=== PATIENT | female | born 1945 | race Caucasian/White ===

== ENCOUNTER 2019-12-05 17:24 | Emergency (ER) | payer MEDICARE, OTHER, SELFPAY ==
[2019-12-05 17:30] VITALS: BP 154/75; PULSE 88; RESP 16; TEMP 35.7; O2SAT 94
--- NOTE | 2019-12-05 17:36 | PC.NURSE ---
nasal clamp placed
[2019-12-05] MEDS: OXYMETAZOLINE HCL 0.05% NAS 15 ML BTL (*BKC) 1 SPRAY NASAL (18:14)
--- NOTE | 2019-12-05 18:20 | ED.GENADULT ---
HPI - General Adult General Chief complaint: Unspecified Stated complaint: nosebleed Time Seen by Provider: 12/05/19 17:31 Source: patient Mode of arrival: ambulatory Limitations: no limitations History of Present Illness HPI narrative: This is a 74 year old female that presents to the ER for nosebleed for the last 30 minutes. Reports she was picking her nose and it started to bleed on the left side. Reports a similar incident a couple of days ago. Reports today she could not control the bleeding so she came to the ER. Denies fever. Related Data Home Medications Medication Instructions Recorded Confirmed aspirin 81 mg tablet,delayed 81 mg PO DAILY 06/11/19 08/30/19 release methocarbamol 750 mg tablet 750 mg PO QID PRN 06/11/19 08/30/19 niacin 500 mg tablet 500 mg PO DAILY 06/11/19 08/30/19 omega-3 fatty acids 1,000 mg 3,000 mg PO DAILY cap 06/11/19 08/30/19 capsule bumetanide 1 mg PO DAILY 08/30/19 glimepiride 1 mg PO HS 08/30/19 Allergies Allergy/AdvReac Type Severity Reaction Status Date / Time No Known Allergies Allergy Mild Verified 12/05/19 17:35 Review of Systems Review of Systems: Narrative: CONSTITUTIONAL: Denies fever ENT: Reports epistaxis All systems reviewed & are unremarkable except as noted in HPI and below PMFSH Past Medical History Medical History (Updated 12/05/19 @ 20:09 by Dinora Carroll PA-C) Anemia Diabetes mellitus HTN (hypertension) Family History Family History (Updated 03/20/14 @ 07:13 by DOCTOR UNKNOWN) Father Family history of rheumatoid arthritis Social History Social History Smoking status: Never smoker Alcohol intake: current Exam Narrative: Exam Narrative: GENERAL: Well-appearing, well-nourished, and in no acute distress. HEAD: Normocephalic, atraumatic. EYES: EOMI. ENT: Left sided epistaxis. Mucous membranes moist. Blood seen in the posterior pharynx CHEST: Airway patent EXTREMITIES: Normal range of motion. No edema. SKIN: Warm, dry, no rash. NEURO: No focal deficits. Alert and oriented x3. PSYCH: Normal mood and affect Course Vital Signs Vital signs: Vital Signs Temperature 96.2 F L 12/05/19 17:30 Pulse Rate 88 12/05/19 17:30 Respiratory Rate 16 12/05/19 17:30 Blood Pressure 154/75 H 12/05/19 17:30 Pulse Oximetry 94 12/05/19 17:30 Temperature 96.2 F L 12/05/19 17:30 Pulse Rate 61 12/05/19 18:54 Respiratory Rate 15 12/05/19 18:54 Blood Pressure 111/52 L 12/05/19 18:54 Pulse Oximetry 96 12/05/19 18:54 Procedures Epistaxis Control left: Epistaxis Control Date: 12/05/19 Epistaxis Control Time: 20:01 Nose Prepped With: oxymetazoline Direct Inspection: yes Clots Removed by: blowing nose Cautery Used: none Device Inserted: nasal tampon Patient Tolerated Procedure: well Epistaxis Control Narrative: Epistaxis controlled in the left nare with a medium size Rhino Rocket Medical Decision Making MDM Narrative Medical decision making narrative: Patient presents the emergency department for epistaxis that started 30 minutes prior to arrival. Patient's vitals are stable. Her hemoglobin is 10.2. Bleeding was controlled with a medium size Rhino Rocket on the left. Spoke with Dr. Del Angel about patient and work-up will follow-up in clinic. Patient will be started on an antibiotic. Offered pain medication, declined. She will take OTC medication as needed. Patient and family were given warnings to return to the ER Vital Signs Vital Signs: Vital Signs Temperature 96.2 F L 12/05/19 17:30 Pulse Rate 88 12/05/19 17:30 Respiratory Rate 16 12/05/19 17:30 Blood Pressure 154/75 H 12/05/19 17:30 Pulse Oximetry 94 12/05/19 17:30 Temperature 96.2 F L 12/05/19 17:30 Pulse Rate 61 12/05/19 18:54 Respiratory Rate 15 12/05/19 18:54 Blood Pressure 111/52 L 12/05/19 18:54 Pulse Oximetry 96 12/05/19 18:54 Lab Data Lab results rev
[2019-12-05 18:54] VITALS: BP 111/52; PULSE 61; RESP 15; O2SAT 96
[2019-12-05 19:16] LABS: Hematocrit 33.3 % (37.0-47.0); Hemoglobin 10.7 g/dL (12.0-15.0); Red Blood Count 3.64 M/mm3 (4.2-5.4); White Blood Count 10.2 K/mm3 (4.5-10.0)
[2019-12-05 19:17] LABS: Basophils Absolute Auto 0.1 K/mm3 (0.0-0.1); Basophils Percent Auto 0.8 % (0.2-1.2); Eosinophils Absolute Auto 0.2 K/mm3 (0-0.3); Eosinophils Percent Auto 2.1 % (0-4.4); Immature Granulocyte Absolute 0.04 K/mm3 (0.00-0.031); Immature Granulocyte Percent A 0.4 % (0-0.5); Lymphocytes Absolute Auto 1.03 K/mm3 (0.9-3.2); Lymphocytes Percent Auto 10.1 % (18.3-44.2); Mean Corpuscular HGB Conc 32.1 g/dl (32-36); Mean Corpuscular Hemoglobin 29.4 pg (26-34); Mean Corpuscular Volume 91.5 fl (80-100); Monocytes Absolute Auto 0.9 K/mm3 (0.1-0.6); Monocytes Percent Auto 8.3 % (2.6-8.5); Neutrophils Percent Auto 78.3 % (45.5-73.1); Platelet Count Result 339 k/mm3 (150-375); Red Cell Distribution Width 12.9 % (11.5-14.5)
[2019-12-05 20:48] LABS: INR 0.9; Prothrombin Time 12.1 Seconds (11.1-14.7)
[2019-12-05 20:49] LABS: Partial Thromboplastin Time 28.8 SECONDS (22.3-36.8)
[2019-12-05 20:56] VITALS: BP 148/73; PULSE 66; RESP 18; TEMP 36.2; O2SAT 97
[2019-12-06 06:05] LABS: Glucose Point of Care 245 (65-105)
== END 2019-12-05 21:11 | disposition home or self-care (01) ==
PROVIDERS: Physician Assistant; Emergency Provider Emergency Medicine; PCP Internal Medicine
DX: R04.0 Epistaxis (principal); E11.9 Type 2 diabetes mellitus without complications; I10 Essential (primary) hypertension; D64.9 Anemia, unspecified; Z79.82 Long term (current) use of aspirin; Z79.84 Long term (current) use of oral hypoglycemic drugs
CPT/HCPCS: 30901; 36415; 82948; 85025; 85610; 85730; 99283; A9270

== ENCOUNTER 2020-01-29 10:06 | Emergency (ER) | payer MEDICARE, OTHER, SELFPAY ==
[2020-01-29 10:10] VITALS: BP 185/91; PULSE 74; RESP 14; TEMP 36.7; O2SAT 97
--- NOTE | 2020-01-29 10:38 | ECG_ITS ---
Measurements Intervals [place] Rate: 65 P: 33 WI: 150 QRS: 7 QRSD: 89 T: 24 QT: 409 QTc: 425 Interpretive Statements SINUS RHYTHM WITH MARKED SINUS ARRHYTHMIA BASELINE ARTIFACT- I, III, AVR, AVL, AVF, V1 NORMAL ECG Electronically Signed On 01-29-2020 11:51:03 CDT by Genaro Almazan D.O.
--- NOTE | 2020-01-29 10:39 | ED.RECABL ---
HPI - Recheck/Abnormal Lab/Rx General Chief Complaint: Recheck/Abnormal Lab/Rx Stated Complaint: htn Time Seen by Provider: 01/29/20 10:21 Source: patient Mode of arrival: ambulatory Limitations: no limitations History of Present Illness HPI narrative: This is a 74 year old female that presents to the ER for high blood pressure. Reports she felt lightheaded this morning so took her blood pressure and it was 200/100. Reports she took her new hypertension medication and since feels better. Currently does not have any symptoms. Denies fever, chest pain, shortness of breath or edema. Related Data Home Medications Medication Instructions Recorded Confirmed aspirin 81 mg tablet,delayed 81 mg PO DAILY 06/11/19 08/30/19 release methocarbamol 750 mg tablet 750 mg PO QID PRN 06/11/19 08/30/19 niacin 500 mg tablet 500 mg PO DAILY 06/11/19 08/30/19 omega-3 fatty acids 1,000 mg 3,000 mg PO DAILY cap 06/11/19 08/30/19 capsule bumetanide 1 mg PO DAILY 08/30/19 glimepiride 1 mg PO HS 08/30/19 Allergies Allergy/AdvReac Type Severity Reaction Status Date / Time No Known Allergies Allergy Mild Verified 01/29/20 10:47 Review of Systems Review of Systems: Narrative: CONSTITUTIONAL: Denies fever CARDIOVASCULAR: Denies chest pain or edema. RESPIRATORY: Denies dyspnea. NEUROLOGIC: Denies headache, numbness, or weakness. All systems reviewed & are unremarkable except as noted in HPI and below PMFSH Social History Social History Smoking status: Never smoker Alcohol intake: current Exam Narrative: Exam Narrative: GENERAL: Well-appearing, well-nourished, and in no acute distress. HEAD: Normocephalic, atraumatic. EYES: EOMI. NECK: Supple. No adenopathy or masses. No carotid bruits or JVD CHEST: Clear to auscultation. No respiratory distress. No wheezes rales or rhonchi HEART: Regular rate and rhythm. No murmur heard. Normal peripheral pulses. EXTREMITIES: Normal range of motion. No edema. SKIN: Warm, dry, no rash. NEURO: No focal deficits. Alert and oriented x3. PSYCH: Normal mood and affect Course Consultations Consultation #1: Spoke with patient's PCP about work-up who would like her to increase her hydralazine to 4 times daily. Continue to monitor blood pressure and follow-up in clinic. Date: 01/29/20 Time: 11:58 Vital Signs Vital signs: Vital Signs Temperature 98.1 F 01/29/20 10:10 Pulse Rate 74 01/29/20 10:10 Respiratory Rate 14 01/29/20 10:10 Blood Pressure 185/91 H 01/29/20 10:10 Pulse Oximetry 97 01/29/20 10:10 Temperature 98.1 F 01/29/20 10:10 Pulse Rate 74 01/29/20 10:10 Respiratory Rate 14 01/29/20 10:10 Blood Pressure 185/91 H 01/29/20 10:10 Pulse Oximetry 97 01/29/20 10:10 MDM - Recheck/Abnormal Lab/Rx MDM Narrative Medical decision making narrative: Patient presents to the emergency department for elevated blood pressure this morning. Also reports she was feeling lightheaded this morning. Did take her blood pressure medications at home and blood pressure has appropriately trended down. Patient is currently asymptomatic. Initially blood pressure 170s-180s systolic. Most recent blood pressure 166/73. CBC and metabolic panel appear to be around her baseline. EKG is without concerning changes. Spoke with patient's PCP about work-up who would like her to increase her hydralazine to 4 times daily. Continue to monitor blood pressure and follow-up in clinic. Patient is stable and felt appropriate for further outpatient evaluation. She was given warnings to return to the ER Lab Data Attestation: I reviewed the patient's lab results. Result diagrams: 01/29/20 10:56 01/29/20 10:56 Labs: Lab Results 01/29/20 01/29/20 Range/Units 10:56 10:56 WBC 7.6 (4.5-10.0) K/mm3 RBC 3.83 L (4.2-5.4) M/mm3 Hgb 11.0 L (12.0-15.0) g/dL Hct 34.1 L (37.0-47.0) % MCV 89.0 (80-100)
[2020-01-29 11:00] VITALS: BP 187/81; PULSE 62; RESP 16; O2SAT 98
[2020-01-29 11:06] LABS: Basophils Absolute Auto 0.1 K/mm3 (0.0-0.1); Basophils Percent Auto 0.7 % (0.2-1.2); Eosinophils Absolute Auto 0.2 K/mm3 (0-0.3); Eosinophils Percent Auto 2.2 % (0-4.4); Hematocrit 34.1 % (37.0-47.0); Immature Granulocyte Absolute 0.02 K/mm3 (0.00-0.031); Immature Granulocyte Percent A 0.3 % (0-0.5); Lymphocytes Absolute Auto 0.75 K/mm3 (0.9-3.2); Lymphocytes Percent Auto 9.9 % (18.3-44.2); Mean Corpuscular HGB Conc 32.3 g/dl (32-36); Mean Corpuscular Hemoglobin 28.7 pg (26-34); Mean Platelet Volume 10.8 fl (7.4-10.4); Monocytes Absolute Auto 0.7 K/mm3 (0.1-0.6); Monocytes Percent Auto 8.8 % (2.6-8.5); Neutrophils Absolute Auto 5.9 K/mm3 (1.3-6.7); Neutrophils Percent Auto 78.1 % (45.5-73.1); Platelet Count Result 393 k/mm3 (150-375); Red Blood Count 3.83 M/mm3 (4.2-5.4); Red Cell Distribution Width 12.9 % (11.5-14.5); White Blood Count 7.6 K/mm3 (4.5-10.0)
[2020-01-29 11:17] LABS: Blood Urea Nitrogen 30 mg/dL (7-17); Calcium 10.1 mg/dL (8.4-10.2); Carbon Dioxide 23 mmol/L (22-30); Chloride 101 mmol/L (98-107); Estimated CRCL calculation 40 ml/min; Estimated Glomerular Filt Rate 37; Glucose 213 mg/dL (65-105); Potassium 4.7 mmol/L (3.4-5.0); Sodium 134 mmol/L (137-145)
[2020-01-29 12:06] VITALS: BP 175/70; PULSE 64; RESP 16; O2SAT 96
== END 2020-01-29 12:06 | disposition home or self-care (01) ==
PROVIDERS: Physician Assistant; Emergency Provider Family Medicine; PCP Internal Medicine
DX: I10 Essential (primary) hypertension (principal); Z79.82 Long term (current) use of aspirin; Z79.84 Long term (current) use of oral hypoglycemic drugs; E11.9 Type 2 diabetes mellitus without complications; D64.9 Anemia, unspecified
CPT/HCPCS: 36415; 80048; 85025; 93005; 99283

== ENCOUNTER → 2020-07-22 11:35 | Outpatient (CLI) | payer MEDICARE, OTHER, SELFPAY ==
--- NOTE | ~2020-07-22 | US_ITS ---
EXAMINATION: US renal BI DATE: 07/22/2020 12:11 INDICATION: Stage III chronic kidney disease TECHNIQUE: Multiple ultrasound grayscale images of the kidneys were obtained. COMPARISON: 05/16/2007 FINDINGS: The right kidney measures 10.9 x 5.3 x 6.1 cm. The left kidney measures 10.3 x 4.8 x 4.7 cm. The kidn eys demonstrate normal echogenicity. There is mild cortical thinning at the upper pole of the right k idney and at the upper and lower poles of the left kidney. There are a couple 1.8 cm anechoic cysts i n the superior and inferior left kidney. There is no hydronephrosis in either kidney. No stones iden tified. The bladder is normal. IMPRESSION: 1. Mild bilateral renal atrophy with a pair of 1.8 cm left renal cyst. No hydronephrosis. Reviewed, dictated and finalized at location A. DESIGNER IMPRESSION: 1. Mild bilateral renal atrophy with a pair of 1.8 cm left renal cyst. No hydr onephrosis.
== END ==
PROVIDERS: PCP Internal Medicine; Visit Provider Internal Medicine Nephrology
DX: N18.31 Chronic kidney disease, stage 3a (principal)
CPT/HCPCS: 76775

== ENCOUNTER → 2020-11-06 10:53 | Outpatient (CLI) | payer MEDICARE, OTHER, SELFPAY ==
--- NOTE | ~2020-11-06 | XR_ITS ---
EXAMINATION: XR wrist RT min 3V DATE: 11/06/2020 11:12 INDICATION: Right wrist pain. TECHNIQUE: 4 views of right wrist were obtained. COMPARISON: None. FINDINGS: Scapholunate dissociation is noted. No fracture. There is diffuse osteopenia. There is mild osteoarthritis of first carpometacarpal joint. IMPRESSION: 1. Scapholunate dissociation. 2. Mild osteoarthritis of first carpometacarpal joint. Reviewed, dictated and finalized at location A.
== END ==
PROVIDERS: PCP Internal Medicine; Visit Provider Nurse Practitioner
DX: M25.539 Pain in unspecified wrist (principal); M19.031 Primary osteoarthritis, right wrist; S63.511A Sprain of carpal joint of right wrist, initial encounter
CPT/HCPCS: 73110